=== PATIENT | female | born 1970 | race Caucasian/White ===

== ENCOUNTER 2021-12-30 08:30 | Outpatient (CLI) | payer OTHER, SELFPAY ==
[2021-12-30 16:31] LABS: Hemoglobin 13.1 g/dL (12.0-15.0); Mean Corpuscular HGB Conc 31.2 g/dl (32-36); Mean Corpuscular Hemoglobin 27.4 pg (26-34); Mean Corpuscular Volume 87.9 fl (80-100); Mean Platelet Volume 10.5 fl (7.4-10.4); Platelet Count Result 282 k/mm3 (150-375); Red Blood Count 4.78 M/mm3 (4.2-5.4); Red Cell Distribution Width 13.3 % (11.5-14.5); White Blood Count 6.4 K/mm3 (4.5-10.0)
[2021-12-30 16:44] LABS: Anion Gap 7 mmol/L (8-16); Blood Urea Nitrogen 22 mg/dL (7-17); Calcium 9.2 mg/dL (8.4-10.2); Carbon Dioxide 26 mmol/L (22-30); Chloride 105 mmol/L (98-107); Cholesterol 198 mg/dL (0-200); Estimated Glomerular Filt Rate > 60; Glucose 87 mg/dL (65-110); HDL Direct 52 mg/dL; Potassium 4.3 mmol/L (3.4-5.0); Sodium 138 mmol/L (137-145); Triglycerides 90 mg/dL (<150)
[2021-12-30 16:54] LABS: Hemoglobin A1C 5.5 % (<5.7)
[2021-12-30 16:55] LABS: LDL Cholesterol Direct 90 mg/dL
[2021-12-30 17:40] LABS: Thyroid Stimulating Hormone 0.059 uIU/mL (0.465-4.680)
[2021-12-30 18:16] LABS: Folic Acid 9.1 ng/mL (2.76->20)
== END 2021-12-30 08:31 | disposition home or self-care (01) ==
LOC: ANHWCLAB 08:32
PROVIDERS: PCP Family Medicine; Referring Provider Nurse Practitioner Family; Visit Provider Nurse Practitioner Family
DX: E03.9 Hypothyroidism, unspecified (principal); R53.81 Other malaise; E78.5 Hyperlipidemia, unspecified; R73.03 Prediabetes; R53.83 Other fatigue
CPT/HCPCS: 36415; 80048; 80061; 82306; 82607; 82746; 83036; 84443; 85027

== ENCOUNTER 2022-07-29 15:34 | Emergency (ER) | payer OTHER, SELFPAY ==
[2022-07-29 15:41] VITALS: BP 174/79; PULSE 74; RESP 16; TEMP 36.9; O2SAT 99
--- NOTE | 2022-07-29 15:51 | ED.GENADULT ---
HPI - General Adult General Chief complaint: Ear Stated complaint: ear pain Time Seen by Provider: 07/29/22 15:51 Source: patient and RN notes reviewed Mode of arrival: ambulatory Limitations: no limitations History of Present Illness HPI narrative: 51-year-old female presents to the [facility] with complaints ear fullness for about 2 weeks. Has had head and nasal congestion for about 2 weeks. Patient reports that the ear pain started 2 days ago. States that she did take her blood pressure medication today. Has a history of allergies Reports tech Kreyonic Mucinex and NyQuil. Does not smoke. Is flu a and COVID vaccinated. History of hypertension and thyroid. Related Data Home Medications Medication Instructions Recorded Confirmed fexofenadine 180 mg tablet 180 mg DIRECTED 07/29/22 07/29/22 levothyroxine 150 mcg tablet 150 mcg DIRECTED 07/29/22 07/29/22 losartan 25 mg tablet 25 mg DIRECTED 07/29/22 07/29/22 Allergies Allergy/AdvReac Type Severity Reaction Status Date / Time No Known Allergies Allergy Unverified 10/22/17 09:31 Review of Systems Review of Systems: All systems reviewed & are unremarkable except as noted in HPI and below Constitutional: Constitutional: Reports no additional constitutional complaints, Denies chills and Denies fever(s) Eyes: Eyes: Reports no additional eye complaints ENT: Reports as per HPI (Ear pain) and Reports nasal congestion Cardiovascular: Cardiovascular: Reports no additional cardiovascular complaints Respiratory: Respiratory: Reports no additional respiratory complaints Gastrointestinal: Gastrointestinal: Reports no additional gastrointestinal complaints Musculoskeletal: Musculoskeletal: Reports no additional musculoskeletal complaints Integumentary/Breasts: Skin/Breast: Reports system reviewed and no additional complaints, except as docu Neurologic: Reports system reviewed and no additional complaints, except as documented Psychiatric: Psychiatric: Reports no additional psychiatric complaints Allergic/Immunologic: Allergic/Immunologic: Reports no additional allergic/immunologic complaints [facility] Past Medical History Medical History (Updated 07/29/22 @ 20:32 by Amparo Neri APRN) Hypertension Thyroid disease Social History Social History (Updated 07/29/22 @ 20:32 by Amparo Neri APRN) Smoking status: Never smoker Alcohol intake: never Gender identity (if verbalized by the patient): Female Comments At the time of my signature, I reviewed and agree with the nursing past medical, surgical, social, and family history. There is no relevant family history pertinent to the patient complaint. Exam Const: General: healthy appearing, no acute distress, alert and well nourished Nutritional Appearance: well nourished Orientation/consciousness: patient oriented x3 Limitations: no limitations HENMT: Head: normal to inspection Ears: external ears normal, EAC's normal and TM abnormal bulging on the right and with fluid behind the TM bilateral Face/Nose/Sinus: Normal external nose present Face and sinus: normal facial exam Mouth: Yes Normal oral and palatal mucosa present, Yes lip normal and Yes moist mucous membranes Throat: posterior oropharynx normal and uvula midline Eyes: General: appearance normal, both eyes and all related structures Conjunctivae: conjunctivae normal Pupils: Equal, round and reactive pupils present Neck: Neck: normal visual inspection, no lymphadenopathy and no meningeal signs Chest: Chest palpation & inspection: normal inspection of the chest Resp: Effort & Inspection: normal respiratory effort and no use of accessory muscles Auscultation: clear to auscultation bilaterally, no crackles, no rales, no rhonchi and no wheezes Cardio: Rate: regular rate Rhythm: regular rhythm Skin: General skin exam: normal color Rashes: no rashes Wounds: no wounds Neuro: General: patient oriented x3, moves all extremities, no menin
== END 2022-07-29 16:07 | disposition home or self-care (01) ==
PROVIDERS: Emergency Provider Nurse Practitioner; PCP Nurse Practitioner Family
DX: H65.03 Acute serous otitis media, bilateral (principal); I10 Essential (primary) hypertension; E03.9 Hypothyroidism, unspecified
CPT/HCPCS: 99213; G0463

== ENCOUNTER 2024-06-04 09:42 | Outpatient (CLI) | payer OTHER, SELFPAY ==
[2024-06-04 10:07] LABS: Hematocrit 42.6 % (37.0-47.0); Hemoglobin 13.6 g/dL (12.0-15.0); Mean Corpuscular HGB Conc 31.9 g/dl (32-36); Mean Corpuscular Hemoglobin 27.4 pg (26-34); Mean Corpuscular Volume 85.7 fl (80-100); Mean Platelet Volume 9.3 fl (7.4-10.4); Platelet Count Result 278 k/mm3 (150-375); Red Blood Count 4.97 M/mm3 (4.2-5.4); Red Cell Distribution Width 13.1 % (11.5-14.5); White Blood Count 7.1 K/mm3 (4.5-10.0)
[2024-06-04 10:16] LABS: Hemoglobin A1C 5.6 % (<5.7)
[2024-06-04 10:20] LABS: Alanine Aminotransferase 20 U/L (6-35); Albumin Level 4.5 g/dL (3.5-5.1); Alkaline Phosphatase 87 U/L (38-126); Anion Gap 10 mmol/L (4-12); Aspartate Amino Transferase 26 U/L (14-36); Bilirubin,Total 0.3 mg/dL (0.2-1.3); Blood Urea Nitrogen 25 mg/dL (7-17); Calcium 9.2 mg/dL (8.4-10.2); Carbon Dioxide 25 mmol/L (22-30); Chloride 104 mmol/L (98-107); Cholesterol 221 mg/dL (0-200); Estimated Glomerular Filt Rate > 60; Glucose 92 mg/dL (65-110); HDL Direct 65 mg/dL; Potassium 4.7 mmol/L (3.4-5.0); Sodium 139 mmol/L (137-145); Triglycerides 105 mg/dL (<150)
[2024-06-04 10:32] LABS: LDL Cholesterol Direct 115 mg/dL
[2024-06-04 10:33] LABS: Vitamin D 25 Hydroxy 22.2 ng/mL
== END 2024-06-04 09:43 | disposition home or self-care (01) ==
LOC: ANHLAB 09:43
PROVIDERS: PCP Emergency Medicine; Visit Provider Emergency Medicine
DX: E11.9 Type 2 diabetes mellitus without complications (principal); E78.5 Hyperlipidemia, unspecified; R53.83 Other fatigue; E07.9 Disorder of thyroid, unspecified; E55.9 Vitamin D deficiency, unspecified
CPT/HCPCS: 36415; 80053; 80061; 82306; 83036; 84443; 85027

== ENCOUNTER 2024-08-11 15:30 | Emergency (ER) | payer OTHER, SELFPAY ==
[2024-08-11 15:37] VITALS: BP 149/86; PULSE 72; RESP 16; TEMP 36.6; O2SAT 100
--- NOTE | 2024-08-11 15:47 | ED_ITS ---
HPI - Wound/Laceration General Chief Complaint: Wound/Laceration Stated Complaint: Left Leg Wound Check Time Seen by Provider: 08/11/24 15:50 Source: patient, RN notes reviewed and old records reviewed Mode of arrival: ambulatory Limitations: no limitations History of Present Illness HPI narrative: 53-year-old female presents to the [facility] with concerns of a wound to the left leg. Area to the left mid inner thigh, red. Patient reports that she has had a growth that she was treating as a wart for approximately 4 months. For the last several days has gotten bigger, red, painful. On the anterior portion has a fluctuant pustule. Patient reports that she was treating it as a wart applying or remover. Became painful over the last 2 days. Related Data Allergies Allergy/AdvReac Type Severity Reaction Status Date / Time No Known Allergies Allergy Verified 08/11/24 15:44 Review of Systems Review of Systems: All systems reviewed & are unremarkable except as noted in HPI and below Constitutional: Constitutional: Reports no additional constitutional complaints ENT: Reports system reviewed and no additional complaints, except as documented Cardiovascular: Cardiovascular: Reports no additional cardiovascular complaints, Denies chest pain and Denies dyspnea Respiratory: Respiratory: Reports no additional respiratory complaints, Denies chest congestion, Denies cough and Denies dyspnea Gastrointestinal: Gastrointestinal: Reports no additional gastrointestinal complaints, Denies abdominal pain, Denies nausea and Denies vomiting Musculoskeletal: Musculoskeletal: Reports no additional musculoskeletal complaints Integumentary/Breasts: Skin/Breast: Reports as per HPI PMFSH Past Medical History Medical History Allergies Hypertension Thyroid disease Family History Family History Other Anxiety Depression Hypertension Thyroid disorder Social History Social History Smoking status: Never smoker Alcohol intake: never Substance use: never Do You Feel Safe in your Home?: Yes Lack of Transportation: No Lack of Food: Never True Current Housing: I Have Housing Concerned About Future Housing: No Difficulty Paying Gas/Electric Bills: No Difficulty Paying for Meds: No Currently Unemployed: No Education: High School Diploma/GED Difficulty w/ Childcare or Family Care: No Gender identity (if verbalized by the patient): Female Comments At the time of my signature, I reviewed and agree with the nursing past medical, surgical, social, and family history. There is no relevant family history pertinent to the patient complaint. Exam Const: General: cooperative, healthy appearing, comfortable, no acute distress, well developed, alert and well nourished Nutritional Appearance: well nourished Orientation/consciousness: patient oriented x3 Limitations: no limitations HENMT: Head: normal to inspection Ears: hearing grossly normal bilaterally and external ears normal Face/Nose/Sinus: Normal external nose present, normal facial exam and face symmetric Face and sinus: normal facial exam and face symmetric Eyes: General: appearance normal, both eyes and all related structures Alignment and Position: alignment normal Periorbital: periorbital findings normal Neck: Neck: normal visual inspection, full ROM, no lymphadenopathy and no meningeal signs Chest: Chest palpation & inspection: normal inspection of the chest Resp: Effort & Inspection: normal respiratory effort and able to speak in complete sentences Cardio: Rate: regular rate Skin: General skin exam: normal color and no rashes or lesions noted Rashes: no rashes Wounds: no wounds Other: Cyst-like structure left inner mid thigh. Cellulitic changes with surrounding purulent drainage Neuro: General: patient oriented x3, gait normal, tone normal, moves all extremities and no meningeal signs Cognition (Neuro): normal cognition Speech: normal speech Gait exam (Neuro): Normal gait present Extrem: General: normal to inspection, full ROM, capillary refill normal and normal gait Psych: Appearance: grossly normal and well kempt Mental Status: mental status grossly normal Speech and movement: Normal speech and movement present and Clear speech present Affect: normal affect Attitude: cooperative Course Course Level of Care: Express Care Visit Vital Signs Vital signs: Vital Signs Temperature 97.8 F 08/11/24 15:37 Pulse Rate 72 08/11/24 15:37 Respiratory Rate 16 08/11/24 15:37 Blood Pressure 149/86 H 08/11/24 15:37 Pulse Oximetry 100 08/11/24 15:37 Oxygen Delivery Room Air 08/11/24 15:37 Temperature 97.8 F 08/11/24 15:37 Pulse Rate 72 08/11/24 15:37 Respiratory Rate 16 08/11/24 15:37 Blood Pressure 149/86 H 08/11/24 15:37 Pulse Oximetry 100 08/11/24 15:37 Oxygen Delivery Room Air 08/11/24 15:37 Reviewed Procedures Abscess I/D lower extremity: Date of Incision: 08/11/24 Time of Incision: 16:06 Side (if applicable): left Local Anesthetic: lidocaine 1% Amount of anesthesia used (mL): 3.5 Technique: incised with #11 blade Amount of fluid expressed (mL): 2 Irrigation: No Abcess I&D Additional Comments: Left mid inner thigh, cyst-like structure x4 months. Procedure explained to patient. Verbal obtained. Area cleaned with Betadine. Injected with lidocaine, anesthesia achieved. Open purulent drainage, approximately 2ml of purulent drainage noted, yellow in color. Culture collected sent to the lab. Dressing applied. Patient tolerated procedure well MDM - Wound/Laceration MDM Narrative Medical decision making narrative: Patient presents concerns infected wart/cyst-like structure. Patient sitting in exam room nontoxic, vitals stable. Patient in no acute distress I&D purulent drainage Patient tolerated well Patient appropriate for outpatient treatment with antibiotics close follow-up. Reports that she has a industrial hygiene engineer she will be seeing Discharge instructions reviewed with patient, as well as provided in writing per nursing staff. The instructions also include specific and strict return/GO TO THE ER as well as f/u information. All questions have been answered, and the patient deny any further questions with discharge and discharge plan. Some parts of this dictation were generated by voice recognition software and may contain typographical and/or grammatical inaccuracies. Differential Diagnosis Differential diagnosis: Likely laceration, abscess and other (cyst, wart) Critical Care Time Critical Care Time Critical Care Time: No Discharge Plan Discharge Clinical Impression: Abscess or cellulitis of thigh, Abnormal skin growth Patient Disposition: Home, Self-Care Condition: Stable Instructions: Antibiotic Form, Abscess (ED) Additional Instructions: Follow-up with your primary care provider this week Today your blood pressure was 149/86. Follow-up with dermatology as already scheduled Wash area twice a day with warm soapy water, pat dry Keep area clean and dry. It may drain for couple of days. For new or worsening symptoms go directly to the emergency room Patient Language: Wolof Prescriptions: New cephalexin 500 mg capsule 500 mg PO Q8H 7 Days Qty: 21 0RF No Action levothyroxine 150 mcg tablet 150 mcg PO DAILY Qty: 90 2RF losartan 25 mg tablet 25 mg PO DAILY Qty: 90 2RF cetirizine [Zyrtec] 10 mg tablet 10 mg PO DAILY PRN (Reason: allergy symptoms) Qty: 90 2RF Zepbound 2.5 mg/0.5 mL pen injector 2.5 mg subcut WEEKLY Qty: 2 0RF Rx Instructions: for 4 weeks Follow-up/Referrals: Rob Cruz MD [Primary Care Provider] - 1 Week (express care follow-up, wound check, blood pressure check) Stand Alone Forms: Work/School Release IP Time of Disposition: 16:18
[2024-08-11] MEDS: LIDOCAINE HCL 1% LOCAL INJ 2 ML AMPUL 4 ML INFILTRATE (16:00)
== END 2024-08-11 16:25 | disposition home or self-care (01) ==
PROVIDERS: Emergency Provider Nurse Practitioner; PCP Emergency Medicine
DX: L02.416 Cutaneous abscess of left lower limb (principal); I10 Essential (primary) hypertension
CPT/HCPCS: 10060; 87070; 87075; 87205; 99213; G0463; J2003

== ENCOUNTER 2024-08-31 09:44 | Emergency (ER) | payer OTHER, SELFPAY ==
[2024-08-31 10:06] VITALS: BP 157/85; PULSE 81; RESP 16; TEMP 36.7; O2SAT 97
--- NOTE | 2024-08-31 10:17 | ED.URI ---
HPI - URI/Sore Throat General Chief Complaint: Upper Respiratory Infection Stated Complaint: cough,drainage Time Seen by Provider: 08/31/24 10:17 Source: patient Mode of arrival: ambulatory Limitations: no limitations History of Present Illness HPI Narrative: 53-year-old female presents with complaint of nasal congestion, postnasal drainage, sore throat, coughing for the past 5-6 days. Afebrile. Not consistently taking any [id number] medications to treat her symptoms. No chest pain or shortness of breath. Reports throat pain worse with swallowing. Patient concern for strep throat. All systems reviewed and negative except as noted above. Related Data Home Medications Medication Instructions Recorded Confirmed losartan 100 mg tablet 100 mg PO DAILY 08/15/24 08/31/24 Allergies Allergy/AdvReac Type Severity Reaction Status Date / Time No Known Allergies Allergy Verified 08/31/24 09:59 Review of Systems Review of Systems: CONSTITUTIONAL: Denies fever, chills, or sweats. EYES: Denies visual changes, redness, or discharge. ENT: Reports rhinorrhea, congestion, sinus pressure or postnasal drainage, sore throat. Denies otalgia. CARDIOVASCULAR: Denies chest pain, palpitations, or edema. RESPIRATORY: reports cough. Denies dyspnea. GASTROINTESTINAL: Denies abdominal pain, nausea, vomiting, or diarrhea. GENITOURINARY: Denies dysuria or hematuria. SKIN: Denies rash or itching. MUSCULOSKELETAL: Denies back pain, joint pain, or myalgia. NEUROLOGIC: Denies headache, numbness, or weakness. PSYCHIATRIC: Denies anxiety or depression. All other systems reviewed are negative, except as documented in HPI. [facility] Past Medical History Medical History Allergies Hypertension Thyroid disease Family History Family History Other Anxiety Depression Hypertension Thyroid disorder Social History Social History Smoking status: Never smoker Alcohol intake: never Substance use: never Do You Feel Safe in your Home?: Yes Lack of Transportation: No Lack of Food: Never True Current Housing: I Have Housing Concerned About Future Housing: No Difficulty Paying Gas/Electric Bills: No Difficulty Paying for Meds: No Currently Unemployed: No Education: High School Diploma/GED Difficulty w/ Childcare or Family Care: No Gender identity (if verbalized by the patient): Female Comments At time of signature, agree with nursing past medical, surgical, social and family history. There is no relevant family history pertinent to the presenting complaint. Exam Narrative: GENERAL: This is a well-nourished, well-developed patient, in no apparent distress. HEAD: normocephalic, atraumatic. EYES: PERRL. Sclera clear/white. Vision is grossly intact. EARS: External ears normal, auditory canals clear and without drainage, TMs normal without perforation. Hearing grossly intact. NOSE: External nose normal with mild congestion, Clear nasal drainage, erythema to bilateral nares with swelling THROAT: Mucous membranes moist, clear postnasal drainage with mild erythema and swelling. No exudates. NECK: Neck supple, non-tender without lymphadenopathy, masses or thyromegaly. CARDIOVASCULAR: Regular rate and rhythm without murmurs, gallops, or rubs. RESPIRATORY: Clear to auscultation. Breath sounds equal bilaterally. No wheezes, rales, or rhonchi. SKIN: warm, Dry, intact with no suspicious lesions or rash, good texture and turgor. NEURO: awake, alert, and oriented to person, place and time. There were no obvious focal neurologic abnormalities. EXTREMITIES: No joint tenderness, effusion, or edema noted. Course Course Level of Care: Express Care Visit Vital Signs Vital signs: Vital Signs Temperature 36.7 C 08/31/24 10:06 Pulse Rate 81 08/31/24 10:06 Respiratory Rate 16 08/31/24 10:06 Blood Pressure 157/85 H 08/31/24 10:06 Pulse Oximetry 97 08/31/24 10:06 Oxygen Delivery Room Air 08/31/24 10:06 Temperature 36.7 C 08/31/24 10:06 Pulse Rate 81 08/31/24 10:06 Respiratory Rate 16 08/31/24 10:06 Blood Pressure 157/85 H 08/31/24 10:06 Pulse Oximetry 97 08/31/24 10:06 Oxygen Delivery Room Air 08/31/24 10:06 reviewed MDM - URI/Sore Throat MDM Narrative Medical decision making narrative: negative COVID and strep testing. Patient symptoms for 5-6 days. Symptoms are viral. Lungs clear to auscultation. Recommend she take [id number]-[id number]-lgqzyed medications to treat symptoms. Patient requesting benzonatate. Patient is aware of diagnosis, understands and agrees to treatment plan. Anticipatory guidance given. Patient agrees to follow-up as directed and is aware of reasons to seek care at the emergency department. Portions of this record may have been created with voice recognition software Differential Diagnosis Differential diagnosis: Likely upper respiratory infection, sinusitis, viral infection, influenza and pharyngitis Lab Data Labs: Lab Results 08/31/24 Range/Units 10:36 POC SARS CoV-2 Ag Negative (Negative) POC Grp A Strep Screen Negative (Negative) Discharge Plan Discharge Clinical Impression: Viral upper respiratory tract infection with cough Patient Disposition: Home, Self-Care Condition: Stable Instructions: Upper Respiratory Infection (ED) Additional Instructions: Your COVID and strep test were negative today. Your symptoms are viral and may last 10-14 days. Take medications as prescribed. Take aqqc-lvc-pursrua medications to treat her symptoms such as DayQuil NyQuil cold and Sinus. Drink at least 64 oz of water a day. Follow-up with your primary care physician if symptoms are not improving. Prescriptions: New methylprednisolone [Medrol (Baldo)] 4 mg tablets,dose pack See Rx Instructions PO .COMPLEX Qty: 21 0RF Rx Instructions: orally per package directions fluticasone propionate [Flonase Allergy Relief] 50 mcg/actuation spray,suspension 1 spray intranasal BID Qty: 16 0RF Rx Instructions: administer into each nostril benzonatate 200 mg capsule 200 mg PO TID PRN (Reason: cough) Qty: 20 0RF No Action levothyroxine 150 mcg tablet 150 mcg PO DAILY Qty: 90 2RF cetirizine [Zyrtec] 10 mg tablet 10 mg PO DAILY PRN (Reason: allergy symptoms) Qty: 90 2RF losartan 100 mg tablet 100 mg PO DAILY amlodipine 5 mg tablet 5 mg PO DAILY Qty: 90 2RF Zepbound 2.5 mg/0.5 mL pen injector 2.5 mg subcut WEEKLY Qty: 2 0RF Rx Instructions: for 4 weeks Follow-up/Referrals: Rob Cruz MD [Primary Care Provider] - Stand Alone Forms: Work/School Release IP Time of Disposition: 10:45
[2024-08-31 10:38] LABS: EDCOVIDSCREEN Negative (Negative); EDSTREPNEGPOS1 Negative (Negative)
== END 2024-08-31 10:50 | disposition home or self-care (01) ==
PROVIDERS: Emergency Provider Nurse Practitioner Family; PCP Emergency Medicine
DX: J06.9 Acute upper respiratory infection, unspecified (principal); I10 Essential (primary) hypertension; E07.9 Disorder of thyroid, unspecified; Z20.822 Contact with and (suspected) exposure to COVID-19
CPT/HCPCS: 87081; 87426; 87880; 99213; G0463

== ENCOUNTER 2024-10-25 10:25 | Outpatient (CLI) | payer OTHER, SELFPAY ==
[2024-10-25 12:07] LABS: Alanine Aminotransferase 23 U/L (6-35); Albumin Level 4.3 g/dL (3.5-5.1); Alkaline Phosphatase 86 U/L (38-126); Anion Gap 7 mmol/L (4-12); Aspartate Amino Transferase 22 U/L (14-36); Bilirubin,Total 0.7 mg/dL (0.2-1.3); Blood Urea Nitrogen 21 mg/dL (7-17); Calcium 9.4 mg/dL (8.4-10.2); Carbon Dioxide 25 mmol/L (22-30); Chloride 104 mmol/L (98-107); Cholesterol 226 mg/dL (0-200); Estimated Glomerular Filt Rate > 60; Glucose 87 mg/dL (65-110); HDL Direct 62 mg/dL; Potassium 4.6 mmol/L (3.4-5.0); Sodium 136 mmol/L (137-145); Triglycerides 96 mg/dL (<150)
[2024-10-25 12:18] LABS: LDL Cholesterol Direct 107 mg/dL
[2024-10-25 12:36] LABS: Thyroid Stimulating Hormone < 0.015 uIU/mL (0.465-4.680)
[2024-10-25 13:00] LABS: Vitamin D 25 Hydroxy 21.9 ng/mL
== END 2024-10-25 10:26 | disposition home or self-care (01) ==
LOC: ANHLAB 10:26
PROVIDERS: PCP Emergency Medicine; Visit Provider Emergency Medicine
DX: E78.5 Hyperlipidemia, unspecified (principal); R53.83 Other fatigue; E55.9 Vitamin D deficiency, unspecified
CPT/HCPCS: 36415; 80053; 80061; 82306; 84443

== ENCOUNTER 2025-03-22 11:17 | Emergency (ER) | payer OTHER, SELFPAY ==
[2025-03-22 11:26] VITALS: BP 156/91; PULSE 76; RESP 20; TEMP 36.2; O2SAT 100
--- NOTE | 2025-03-22 11:42 | ED.GENADULT ---
HPI - General Adult General Chief complaint: Upper Respiratory Infection Stated complaint: Congestion Source: patient Mode of arrival: ambulatory Limitations: no limitations History of Present Illness HPI narrative: patient is a 54-year-old female presenting with complaint of congestion. Additional reported include rhinorrhea, postnasal drip, sinus pressure, cough. Symptoms began 3 days ago. She reports her same symptoms prior to onset of her symptoms. Treatment initiated prior to arrival include DayQuil, NyQuil. no Additional complaints. Related Data Home Medications ?Medication ?Instructions ?Recorded ?Confirmed ?Last Taken ?Type losartan 100 mg tablet 100 mg PO DAILY 08/15/24 01/24/25 Unknown History amlodipine 5 mg tablet mg 03/22/25 Unknown History Allergies Allergy/AdvReac Type Severity Reaction Status Date / Time No Known Allergies Allergy Verified 03/22/25 11:19 Review of Systems Review of Systems: CONSTITUTIONAL: Denies body aches, fever, chills, or sweats. EYES: Denies visual changes, redness, or discharge. ENT: Denies otalgia. CARDIOVASCULAR: Denies chest pain, palpitations, or edema. RESPIRATORY: reports cough GASTROINTESTINAL: Denies abdominal pain, nausea, vomiting, or diarrhea. GENITOURINARY: Denies dysuria or hematuria. SKIN: Denies rash, itching, or wounds. MUSCULOSKELETAL: Denies back pain, joint pain, or myalgia. NEUROLOGIC: Denies headache, numbness, tingling, or weakness. PSYCH: Denies depression or anxiety. All systems reviewed & are unremarkable except as noted in HPI and below PMFSH Past Medical History Medical History Allergies Thyroid disease Hypertension Family History Family History Other Anxiety Depression Hypertension Thyroid disorder Social History Social History Smoking status: Never smoker Alcohol intake: never Substance use: never Substance use type: does not use Do You Feel Safe in your Home?: Yes Lack of Transportation: No Lack of Food: Never True Current Housing: I Have Housing Concerned About Future Housing: No Difficulty Paying Gas/Electric Bills: No Difficulty Paying for Meds: No Currently Unemployed: No Education: High School Diploma/GED Difficulty w/ Childcare or Family Care: No Gender identity (if verbalized by the patient): Female Exam Narrative: GENERAL: Well-appearing, well-nourished, and in no acute distress. HEAD: Normocephalic, atraumatic. EYES: EOMI. No redness or drainage. Conjunctivae normal. ENT: Mucous membranes pink and moist. TMs normal bilaterally. Throat normal. Uvula midline. NECK: Normal AROM. Supple. CHEST: No respiratory distress. Clear to auscultation. HEART: Regular rate and rhythm. No murmur appreciated. Normal peripheral pulses. ABDOMEN: Soft, nontender, nondistended, normal active bowel sounds. MUSCULOSKELETAL: No bony tenderness. EXTREMITIES: Normal range of motion. No edema. SKIN: Warm, dry, no rash. Capillary refill normal. Normal skin turgor. NEURO: No focal deficits. Alert and oriented x3. Gait steady. PSYCH: Normal affect. No signs of depression or anxiety. Const: Nutritional Appearance: obese HENMT: Ears: external ears normal, TM's normal bilaterally and EAC's normal Face/Nose/Sinus: Nasal discharge present clear Face and sinus: normal facial exam and sinuses nontender Course Course Emergency Course: Please be advised this is a medical document. It is intended for [id number] communication. It is written in medical language and may contain unfamiliar abbreviations or verbiage. Medical documents are intended to carry relevant information, facts as evident, and the clinical opinion of the practitioner at the time of the encounter. This dictation may have been done utilizing a voice recognition system. Attempts have been made to correct errors. However, there may be uncorrected grammatical, spelling, and recognition errors present. Level of Care: Express Care Visit Vital Signs Vital signs: Vital Signs Temperature 97.2 F L 03/22/25 11:26 Pulse Rate 76 03/22/25 11: Respiratory Rate 20 03/22/25 11:26 Blood Pressure 156/91 H 03/22/25 11: Pulse Oximetry 100 03/22/25 11:26 Oxygen Delivery Room Air 03/22/25 11: Temperature 97.2 F L 03/22/25 11:26 Pulse Rate 76 03/22/25 11:26 Respiratory Rate 20 03/22/25 11:26 Blood Pressure 156/91 H 03/22/25 11:26 Pulse Oximetry 100 03/22/25 11:26 Oxygen Delivery Room Air 03/22/25 11:26 Medical Decision Making Vital Signs Vital Signs: Vital Signs Temperature 97.2 F L 03/22/25 11:26 Pulse Rate 76 03/22/25 11:26 Respiratory Rate 20 03/22/25 11:26 Blood Pressure 156/91 H 03/22/25 11:26 Pulse Oximetry 100 03/22/25 11:26 Oxygen Delivery Room Air 03/22/25 11:26 Temperature 97.2 F L 03/22/25 11:26 Pulse Rate 76 03/22/25 11:26 Respiratory Rate 20 03/22/25 11:26 Blood Pressure 156/91 H 03/22/25 11:26 Pulse Oximetry 100 03/22/25 11:26 Oxygen Delivery Room Air 03/22/25 11:26 Discharge Plan Discharge Clinical Impression: Acute upper respiratory infection Hypertension Qualifiers: Hypertension type: unspecified Qualified Code(s): I10 - Essential (primary) hypertension Patient Disposition: Home Condition: Stable Instructions: Antibiotic Form Additional Instructions: your symptoms are due to a viral illness, which is not treated with antibiotics. Virus symptoms can last for up to 10-14 days with a cough lasting for much longer. Take Tylenol, ibuprofen for the package instructions for pain or fever. Rest and stay hydrated. Follow up with your PCP if symptoms are not improving, or sooner if symptoms are worsening. Go straight to ER should your symptoms become worse or should any new symptoms develop Patient Language: Mexican Prescriptions: New prednisone 20 mg tablet 60 mg PO DAILY Qty: 15 0RF No Action amlodipine 5 mg tablet losartan 100 mg tablet 100 mg PO DAILY levothyroxine [Levoxyl] 100 mcg tablet 100 mcg PO DAILY Qty: 90 2RF cetirizine 10 mg tablet See Rx Instructions .ROUTE .COMPLEX Qty: 90 2RF Dose Instruction: TAKE 1 TABLET ORALLY DAILY NEEDED FOR ALLERGY SYMPTOMS Rx Instructions: TAKE 1 TABLET ORALLY DAILY NEEDED FOR ALLERGY SYMPTOMS Follow-up/Referrals: Rob Cruz MD [Primary Care Provider] - 03/22/25 Time of Disposition: 11:55
[2025-03-22 11:54] LABS: EDCOVIDSCREEN Negative (Negative); EDINFLUASCREEN Negative (Negative); EDINFLUBSCREEN Negative (Negative)
== END 2025-03-22 12:00 | disposition home or self-care (01) ==
PROVIDERS: Emergency Provider Registered Nurse; PCP Emergency Medicine
DX: J06.9 Acute upper respiratory infection, unspecified (principal); Z20.822 Contact with and (suspected) exposure to COVID-19; I10 Essential (primary) hypertension; E07.9 Disorder of thyroid, unspecified
CPT/HCPCS: 87426; 87804; 99213; G0463

== ENCOUNTER 2025-03-23 15:31 | Emergency (ER) | payer OTHER, SELFPAY ==
[2025-03-23] VITALS (26 sets, daily range): BP systolic 139–193; BP diastolic 75–115; PULSE 75–103; RESP 16–25; TEMP 36.4; O2SAT 95–100
--- NOTE | ~2025-03-23 | XR_ITS ---
CHEST RADIOGRAPH, PA AND LATERAL CLINICAL HISTORY: cough, uri . COMPARISON: None available TECHNIQUE: PA and lateral views of the chest. FINDINGS The cardiomediastinal silhouette is unremarkable. Hazy opacification of the bilateral lower lung montano, felt to be related to overlying soft tissues, rather than inherent parenchymal lung disease. The lungs are clear. IMPRESSION: No focal infiltrate or effusion. Reviewed, dictated and finalized at location A.
--- NOTE | ~2025-03-23 | CT_ITS ---
History: Headache PROCEDURE: CT head without contrast. COMPARISON: None TECHNIQUE: Axial imaging of the head performed from the skull base to the vertex without IV contrast. Sagittal a nd coronal reformations obtained. DLP: 681 mGy-cm FINDINGS: The ventricles are normal in size, shape and position. There is no mass, mass effect or midline shift. There is no abnormal extra-axial fluid collection or intracranial hemorrhage. Dense opacification of the left maxillary sinus with mucoperiosteal thickening and an air-fluid level in the right maxillary sinus. Bilateral ethmoid sinuses are opacified. Mucoperiosteal thickening within the bilateral sphenoid sinuses. Mucoperiosteal thickening within the frontoethmoidal recess bilaterally. Opacification of the left mastoid air cells with partial opacification of the right mastoid air cells . No acute displaced fractures within the overlying cranium. Impression: No acute intracranial hemorrhage or suspicious mass effect. Severe, bilateral inflammatory sinus disease, as detailed above. Reviewed, dictated and finalized at location A. Impression: No acute intracranial hemorrhage or suspicious mass effect. Severe, bilateral inflammatory sinus disease, as detailed above.
[2025-03-23 18:35] LABS: Basophils Percent Auto 0.2 % (0.2-1.2); Eosinophils Absolute Auto 0.1 K/mm3 (0-0.3); Eosinophils Percent Auto 0.5 % (0-4.4); Hematocrit 40.5 % (37.0-47.0); Hemoglobin 13.1 g/dL (12.0-15.0); Immature Granulocyte Absolute 0.04 K/mm3 (0.00-0.031); Immature Granulocyte Percent A 0.4 % (0-0.5); Lymphocytes Absolute Auto 2.08 K/mm3 (0.9-3.2); Mean Corpuscular HGB Conc 32.3 g/dl (32-36); Mean Corpuscular Volume 83.5 fl (80-100); Mean Platelet Volume 9.2 fl (7.4-10.4); Monocytes Absolute Auto 0.9 K/mm3 (0.1-0.6); Monocytes Percent Auto 8.3 % (2.6-8.5); Neutrophils Absolute Auto 7.8 K/mm3 (1.3-6.7); Neutrophils Percent Auto 71.6 % (45.5-73.1); Platelet Count Result 257 k/mm3 (150-375); Red Blood Count 4.85 M/mm3 (4.2-5.4); Red Cell Distribution Width 12.9 % (11.5-14.5); White Blood Count 10.9 K/mm3 (4.5-10.0)
[2025-03-23 18:55] LABS: Alanine Aminotransferase 30 U/L (6-35); Albumin Level 4.4 g/dL (3.5-5.1); Alkaline Phosphatase 81 U/L (38-126); Anion Gap 10 mmol/L (4-12); Aspartate Amino Transferase 37 U/L (14-36); Bilirubin,Total 0.6 mg/dL (0.2-1.3); Blood Urea Nitrogen 16 mg/dL (7-17); Calcium 9.6 mg/dL (8.4-10.2); Carbon Dioxide 22 mmol/L (22-30); Chloride 104 mmol/L (98-107); Estimated CRCL calculation 78 ml/min; Estimated Glomerular Filt Rate > 60; Glucose 114 mg/dL (65-110); Lipase 64 U/L (23-300); Potassium 4.5 mmol/L (3.4-5.0); Sodium 136 mmol/L (137-145); Total Protein 8.7 g/dL (6.3-8.2)
[2025-03-23] MEDS: LOSARTAN POTASSIUM 100 MG TABLET PO (19:02)
[2025-03-23] MEDS: SODIUM CHLORIDE 0.9% IV 1,000 ML 999 ML IV CONT (19:02)
[2025-03-23] MEDS: AMOXICILLIN/CLAVULANATE K 875-125 MG TAB 1 TABLET PO (19:03)
[2025-03-23] MEDS: ACETAMINOPHEN 500 MG TABLET 1000 MG PO (19:03)
[2025-03-23] MEDS: diphenhydrAMINE HCl INJ 50 MG/ML VIAL 25 MG IV PUSH (19:04)
[2025-03-23] MEDS: METOCLOPRAMIDE HCL INJ 10 MG/2 ML VIAL IV PUSH (19:07)
--- NOTE | 2025-03-23 19:07 | ED_ITS ---
HPI - General Adult General Chief complaint: Unspecified Stated complaint: head pressure and ear throbbing, HTN Time Seen by Provider: 03/23/25 17:43 Source: patient Mode of arrival: ambulatory Limitations: no limitations History of Present Illness HPI narrative: Patient is a 54-year-old female who presents the ED with report of headache, left ear pain. Patient reports she has been sick since last Thursday with sinus pressure, congestion, headaches, cough, N/V. Does have history of migraines and headaches. Has been taking Tylenol intermittently with minimal improvement. Has also been taking DayQuil/NyQuil. Has not taken anything for her symptoms today. Began having left ear pain yesterday. Denies fevers. Denies sick contacts. Denies shortness of breath. Patient notes history of hypertension. She is on losartan 100 mg daily. She did not take her normal medication today. Related Data Home Medications ?Medication ?Instructions ?Recorded ?Confirmed ?Last Taken ?Type losartan 100 mg tablet 100 mg PO DAILY 08/15/24 01/24/25 Unknown History amlodipine 5 mg tablet mg 03/22/25 Unknown History Allergies Allergy/AdvReac Type Severity Reaction Status Date / Time No Known Allergies Allergy Verified 03/23/25 18:16 Review of Systems 2 Review of Systems: All systems reviewed & are unremarkable except as noted in HPI. All systems reviewed & are unremarkable except as noted in HPI and below PMFSH Past Medical History Medical History Allergies Thyroid disease Hypertension Family History Family History Other Anxiety Depression Hypertension Thyroid disorder Social History Social History Smoking status: Never smoker Alcohol intake: never Substance use: never Substance use type: does not use Do You Feel Safe in your Home?: Yes Lack of Transportation: No Lack of Food: Never True Current Housing: I Have Housing Concerned About Future Housing: No Difficulty Paying Gas/Electric Bills: No Difficulty Paying for Meds: No Currently Unemployed: No Education: High School Diploma/GED Difficulty w/ Childcare or Family Care: No Gender identity (if verbalized by the patient): Female Exam 2 Narrative: GENERAL: Mildly uncomfortable appearing, obese with BMI of 34.4, non-toxic, in no acute distress. HEAD: Normocephalic, atraumatic. ENT: R TM clear. L TM diffusely erythematous and bulging. Possible TM perforation. Slight clear drainage. No significant EAC swelling/erythema. RESPIRATORY: Airway patent, respirations nonlabored. Clear to auscultation bilaterally, no rales, rhonchi, wheezing. CARDIOVASCULAR: Regular rate and rhythm without murmurs, rubs, or gallops. MUSCULOSKELETAL: Moves all extremities. No gross deformities. SKIN: Warm, dry, normal color. NEURO: A&O X3. Speech clear. Cranial nerves II-XII grossly intact. Steady gait. No ataxic movements. No focal deficits. PSYCHIATRIC: Appropriate mood and affect. Normal interaction. Course Vital Signs Vital signs: Vital Signs Temperature 97.6 F 03/23/25 15:32 Pulse Rate 103 H 03/23/25 15:32 Respiratory Rate 18 03/23/25 15:32 Blood Pressure 183/115 H 03/23/25 15:32 Pulse Oximetry 97 03/23/25 15:32 Temperature 97.6 F 03/23/25 15:32 Pulse Rate 75 03/23/25 20:46 Respiratory Rate 21 H 03/23/25 20:46 Blood Pressure 139/77 03/23/25 20:46 Pulse Oximetry 95 03/23/25 20:46 Oxygen Delivery Room Air 03/23/25 18:14 Medical Decision Making [facility] [place] Narrative Medical decision making narrative: Patient presented to ED with headache, nausea, vomiting, left ear pain. Vital signs stable upon arrival, patient mildly hypertensive. She does have history of hypertension, did not take her normal medications today. She was given her home dose of losartan in the ED with improvement of blood pressure. Patient neurologically intact. No focal deficits. CT brain was obtained and without intracranial pathology. Does show bilateral sinus disease. Left ear exam consistent with AOM with possible TM perforation. Patient started on Augmentin in the ED. Will also start on ofloxacin ear drops. Given fluids and migraine cocktail. Laboratory studies with white blood cell count of 10.9. Otherwise fairly unremarkable. Chest x-ray is clear. Viral swabs are negative. UA without signs of infection. Patient feeling much better on re-evaluation. Feels ready to go home. Discussed reassuring workup. Given return precautions. Advised to continue [id number] cough and cold medicines, take antibiotics as prescribed. Discharged in stable condition. Medical Records Medical records reviewed: Yes I reviewed the external patient's medical records. Vital Signs Vital Signs: Vital Signs Temperature 97.6 F 03/23/25 15:32 Pulse Rate 103 H 03/23/25 15:32 Respiratory Rate 18 03/23/25 15:32 Blood Pressure 183/115 H 03/23/25 15:32 Pulse Oximetry 97 03/23/25 15:32 Temperature 97.6 F 03/23/25 15:32 Pulse Rate 75 03/23/25 20:46 Respiratory Rate 21 H 03/23/25 20:46 Blood Pressure 139/77 03/23/25 20:46 Pulse Oximetry 95 03/23/25 20:46 Oxygen Delivery Room Air 03/23/25 18:14 Lab Data Lab results reviewed: Yes I reviewed the patient's lab results. 03/23/25 18:29 03/23/25 18:29 Labs: Lab Results 03/23/25 03/23/25 03/23/25 Range/Units 18:29 19:08 19:15 WBC 10.9 H (4.5-10.0) K/mm3 RBC 4.85 (4.2-5.4) M/mm3 Hgb 13.1 (12.0-15.0) g/dL Hct 40.5 (37.0-47.0) % MCV 83.5 (80-100) fl MCH 27.0 (26-34) pg MCHC 32.3 (32-36) g/dl RDW 12.9 (11.5-14.5) % Plt Count 257 (150-375) k/mm3 MPV 9.2 (7.4-10.4) fl Immature Gran % (Auto) 0.4 (0-0.5) % Neut % (Auto) 71.6 (45.5-73.1) % Lymph % (Auto) 19.0 (18.3-44.2) % [place] % (Auto) 8.3 (2.6-8.5) % Eos % (Auto) 0.5 (0-4.4) % Baso % (Auto) 0.2 (0.2-1.2) % Lymph # (Auto) 2.08 (0.9-3.2) K/mm3 [place] # (Auto) 0.9 H (0.1-0.6) K/mm3 Eos # (Auto) 0.1 (0-0.3) K/mm3 Baso # (Auto) 0.0 (0.0-0.1) K/mm3 Abs Immat Gran (auto) 0.04 H (0.00-0.031) K/mm3 Absolute Neuts (auto) 7.8 H (1.3-6.7) K/mm3 Absolute Nucleated RBC 0.000 (0.0-0.012) K/mm3 Nucleated RBC % 0.0 (0.0-0.2) % Sodium 136 L (137-145) mmol/L Potassium 4.5 (3.4-5.0) mmol/L Chloride 104 (98-107) mmol/L Carbon Dioxide 22 (22-30) mmol/L Anion Gap 10 (4-12) mmol/L BUN 16 (7-17) mg/dL Creatinine 0.76 (0.7-1.0) mg/dL Estim Creat Clear Calc 78 ml/min Estimated GFR > 60 (59 - ) Glucose 114 H (65-110) mg/dL Calcium 9.6 (8.4-10.2) mg/dL Total Bilirubin 0.6 (0.2-1.3) mg/dL AST 37 H (14-36) U/L ALT 30 (6-35) U/L Alkaline Phosphatase 81 (38-126) U/L Total Protein 8.7 H (6.3-8.2) g/dL Albumin 4.4 (3.5-5.1) g/dL Lipase 64 (23-300) U/L Urine Color Yellow (Yellow) Urine Appearance Clear (Clear) Urine pH 7.0 (5.0-9.0) Ur Specific [place] 1.021 (1.001-1.035) Urine Protein 1+ H (Negative) mg/dL Urine Glucose (UA) Negative (Negative) mg/dL Urine Ketones Negative (Negative) mg/dL Ur Blood (Man) Negative (Negative) Urine Nitrate Negative (Negative) Urine Bilirubin Negative (Negative) Urine Urobilinogen 1.0 (<2.0) mg/dL Leukocyte Esterase Rfl Negative (Negative) ROBERTO/UL Urine RBC 0-2 (0-2) /hpf Urine WBC 0-5 (0-3) /hpf Ur Squamous Epith Cells None seen (Few) /hpf Urine Bacteria None seen /hpf Urine Casts 0-2 POC Urine HCG, Qual Negative (Negative) Influenza A (RT-PCR) Negative (Negative) Influenza B (RT-PCR) Negative (Negative) RSV (RT-PCR) Negative (Negative) SARS-CoV-2 RNA (RT-PCR) Negative (Negative) Imaging Data Attestation: I personally reviewed and interpreted this imaging study as follows: Radiologist's impression: ITS Impressions Chest X-Ray 03/23/25 18:56 IMPRESSION: No focal infiltrate or effusion. Head CT 03/23/25 19:04 Impression: No acute intracranial hemorrhage or suspicious mass effect. Severe, bilateral inflammatory sinus disease, as detailed above. Discharge Plan Discharge Clinical Impression: Acute left otitis media Headache Qualifiers: Headache type: unspecified Headache chronicity pattern: acute headache I ntractability: not intractable Qualified Code(s): R51.9 - Headache, unspecified Sinusitis Qualifiers: Sinusitis location: unspecified location Chronicity: acute Recurrence: non- recurrent Qualified Code(s): J01.90 - Acute sinusitis, unspecified Patient Disposition: Home Condition: Stable Instructions: Antibiotic Form, Sinusitis (ED), Ear Infection (ED), Acute Headache (ED) Additional Instructions: Take antibiotics as prescribed for infection. Utilize ear drops as prescribed. Stay well-hydrated at home. Recommend electrolyte rich fluids, Gatorade, Pedialyte, body armor. Analyze Zofran as needed for nausea. Recommend Tylenol and Ibuprofen around the clock as needed for discomfort and/or headaches. Recommend [id number] cough and cold medicines for symptom relief, Delsym, Mucinex, DayQuil, NyQuil, Sudafed, Robitussin, TheraFlu. Follow with primary care doctor upon resolution of symptoms. Return to the ED if you experience chest pain, difficulty breathing, unable to keep down food or drink, severe pain, or any other symptoms of concern. Patient Language: Monegasque Prescriptions: New ofloxacin 0.3 % drops 5 drp LEFT EAR BID 7 Days Qty: 5 0RF ondansetron 4 mg tablet,disintegrating 4 mg PO Q8H PRN (Reason: nausea and vomiting) Qty: 15 0RF amoxicillin-pot clavulanate 875-125 mg tablet 1 tablet PO Q12H 7 Days Qty: 14 0RF No Action amlodipine 5 mg tablet prednisone 20 mg tablet 60 mg PO DAILY Qty: 15 0RF losartan 100 mg tablet 100 mg PO DAILY levothyroxine [Levoxyl] 100 mcg tablet 100 mcg PO DAILY Qty: 90 2RF cetirizine 10 mg tablet See Rx Instructions .ROUTE .COMPLEX Qty: 90 2RF Dose Instruction: TAKE 1 TABLET ORALLY DAILY NEEDED FOR ALLERGY SYMPTOMS Rx Instructions: TAKE 1 TABLET ORALLY DAILY NEEDED FOR ALLERGY SYMPTOMS Follow-up/Referrals: Rob Cruz MD [Primary Care Provider] - Time of Disposition: 21:06
[2025-03-23 19:10] LABS: BEDSIDEPREGUCG Negative (Negative)
[2025-03-23] MEDS: KETOROLAC 30 MG/ML VIAL (*BKC) IV PUSH (19:22)
[2025-03-23 19:25] LABS: Add Urine Microscopic? YES; Appearance Urine Clear (Clear); Bacteria Urine None Seen /hpf; Bilirubin Urine Negative (Negative); Blood Urine Negative (Negative); Color Urine Yellow (Yellow); Glucose Urine UA Negative (Negative); Ketones Urine Negative (Negative); Leukocyte Esterase Ur Negative LEU/UL (Negative); Nitrate Urine Negative (Negative); Non Pathogenic Casts 0-2; Protein Urine 1+ mg/dL (Negative); RBC Urine 0-2 /hpf (0-2); Specific Grav Ur 1.021 (1.001-1.035); Squamous Epithelial Cell Urine None Seen /hpf (Few); WBC Urine 0-5 /hpf (0-3)
[2025-03-23 19:58] LABS: Influenza A QL RT-PCR Negative (Negative); Influenza B QL RT-PCR Negative (Negative); RSV RNA, RT-PCR Negative (Negative); SARS-CoV-2 RNA PCR Negative (Negative)
== END 2025-03-23 21:19 | disposition home or self-care (01) ==
PROVIDERS: Emergency Provider Physician Assistant; PCP Emergency Medicine
DX: J01.90 Acute sinusitis, unspecified (principal); H66.92 Otitis media, unspecified, left ear; R51.9 Headache, unspecified; Z20.822 Contact with and (suspected) exposure to COVID-19; I10 Essential (primary) hypertension; E07.9 Disorder of thyroid, unspecified; Z79.899 Other long term (current) drug therapy
CPT/HCPCS: 36415; 70450; 71046; 80053; 81001; 81025; 83690; 85025; 87637; 96361; 96374; 96375; 99282; 99284; 99285; A9270; J1200; J1885; J2765; J7030

== ENCOUNTER 2025-06-06 09:54 | Outpatient (CLI) | payer OTHER, SELFPAY ==
[2025-06-06 10:27] LABS: Hemoglobin A1C 5.7 % (<5.7)
[2025-06-06 10:52] LABS: Free T4 Free Thyroxine 1.23 ng/dL (0.78-2.19)
[2025-06-06 11:07] LABS: Thyroid Stimulating Hormone 0.961 uIU/mL (0.465-4.680)
== END 2025-06-06 09:55 | disposition home or self-care (01) ==
PROVIDERS: PCP Emergency Medicine; Visit Provider Internal Medicine Endocrinology, Diabetes & Metabolism
DX: E03.9 Hypothyroidism, unspecified (principal); E55.9 Vitamin D deficiency, unspecified; R73.09 Other abnormal glucose
CPT/HCPCS: 36415; 82306; 83036; 84439; 84443